=== PATIENT | male | born 1975 | race African-American/Black ===

== ENCOUNTER 2017-09-15 10:24 | Emergency (ER) | payer OTHER, SELFPAY | END 2017-09-15 11:13 | disposition left against medical advice (07) | LOC: ER 11:02 | PROVIDERS: Emergency Provider Emergency Medicine; Family Provider Physician Assistant | DX: Z53.29 Procedure and treatment not carried out because of patient's decision for other reasons (principal) | CPT/HCPCS: 99211 ==

== ENCOUNTER → 2019-09-11 17:11 | Outpatient (CLI) | payer OTHER, SELFPAY ==
[2019-09-11 17:13] LABS: Adenovirus F 40/41, stool Not Detected (NotDetected); Astrovirus Not Detected (NotDetected); Campylobacter Not Detected (NotDetected); Cryptosporidium Not Detected (NotDetected); Cyclospora Cayetanesis Not Detected (NotDetected); Entamoeba histolytica Not Detected (NotDetected); Enteroaggregative E coli Not Detected (NotDetected); Enteropathogenic E coli Not Detected (NotDetected); Enterotoxigenic E coli Not Detected (NotDetected); Giardia lamblia Not Detected (NotDetected); Norovirus Not Detected (NotDetected); Plesimonas Shigalloides, PCR Not Detected (NotDetected); Rotavirus A Not Detected (NotDetected); Salmonella, PCR Not Detected (NotDetected); Sapovirus Not Detected (NotDetected); Shiga-like toxin E coli Not Detected (NotDetected); Shigella Enterovasive E coli Not Detected (NotDetected); Vibrio Cholerae Not Detected (NotDetected); Vibrio, PCR Not Detected (NotDetected); Yersinia Entercolitica, PCR Not Detected (NotDetected)
[2019-09-11 20:20] LABS: Clostridium Difficile A/B, PCR Detected (NotDetected)
== END ==
PROVIDERS: Visit Provider Nurse Practitioner Family
DX: A04.72 Enterocolitis due to Clostridium difficile, not specified as recurrent (principal)
CPT/HCPCS: 87506

== ENCOUNTER 2020-08-07 15:43 | Emergency (ER) | payer OTHER, SELFPAY ==
[2020-08-07 16:10] VITALS: BP 190/125; PULSE 63; RESP 20; TEMP 37.2; O2SAT 98; BMI 27.1
[2020-08-07 16:16] VITALS: BMI 27.2
--- NOTE | 2020-08-07 16:17 | XR_ITS ---
PROCEDURE: XR CERVICAL SPINE 3V CLINICAL INDICATION: PAIN COMPARISON: No exams were available for comparison FINDINGS: Normal alignment. No fracture or dislocation. The disc spaces are well preserved. There is straightening of the cervical lordosis. This is nonspecific and may be due to patient positioning or muscle spasm. IMPRESSION: Straightening of cervical lordosis otherwise negative Dictated by: Mk Alvarado MD 08/07/2020 16:47 Mk Alvarado MD in [place] 08/07/2020 16:47
--- NOTE | 2020-08-07 16:17 | XR_ITS ---
PROCEDURE: XR SHOULDER RT MIN 2V CLINICAL INDICATION: PAIN COMPARISON: No exams were available for comparison FINDINGS: No fracture or dislocation. No lytic or blastic change. There is normal mineralization. The joint spaces are well-preserved. No significant degenerative/arthritic changes. No erosive changes evident. Other findings:None. IMPRESSION: Negative right shoulder Dictated by: Mk Alvarado MD 08/07/2020 16:47 Mk Alvarado MD in [place] 08/07/2020 16:47
--- NOTE | 2020-08-07 16:23 | HMH.EDUTC ---
[facility] [place] Impression: Neck pain, Muscle spasm Right shoulder pain Qualifiers: Chronicity: unspecified Qualified Code(s): M25.511 - Pain in right shoulder Disposition: Home, Self-Care Condition on Discharge: Good Instructions: Chronic Neck Pain, DI for Shoulder Pain Additional Instructions: Go home and rest. It would be best if you rested tomorrow too. No heavy lifting. No twisting. Take the oral medications as directed. The muscle relaxer (robaxin) will make you drowsy, so don't drive or operate heavy machinery after taking it. Follow up with your regular doctor. GO TO THE ER FOR ANY WORSENING SYMPTOMS OR CONCERN, ESPECIALLY BOWEL OR BLADDER ISSUES, SADDLE AREA NUMBNESS, FEVER, ETC Follow up with your primary care physician regarding your elevated blood pressure. Prescriptions: Losartan Potassium 50 mg PO DAILY 30 Days #30 tab Transmission Status: Received by [id number] predniSONE [Prednisone 20mg Tab] 20 mg PO BID 5 Days #10 tab Transmission Status: Received by [id number] Methocarbamol [Robaxin 500mg Tab] 500 mg PO BIDP PRN #30 tab PRN Reason: Muscle Spasm Transmission Status: Received by [id number] Referrals: Isamar Arguello PA [Primary Care Provider] - Time of Disposition: 16:48 Medical Decision Making - Medical Records Medical records reviewed: No: I reviewed the patient's medical records. - Ravinder Inquiry Pt receiving controlled substance: No Vital Signs: 08/07/20 16:10 08/07/20 16:58 Temperature 98.9 F 98.9 F Temperature Source Oral Pulse Rate 63 Pulse Rate [Right Brachial] 63 Respiratory Rate 20 20 Blood Pressure 190/125 H Blood Pressure [Right Arm] 190/125 H Blood Pressure Mean [Right Arm] 146 Blood Pressure Source [Right Arm] Automatic Cuff Blood Pressure Position [Right Arm] Sitting 02 Sat by Pulse Oximetry 98 Oxygen Delivery Method Room Air [facility] [place] - General Stated complaint: L shoulder,neck pain Time Seen by Provider: 08/07/20 16:23 - History of Present Illness Provider Complaint: He complains of right shoulder and right sided neck pain. This has been ongoing for the past several months. It occurs intermitently. He states that today it is hurting worse than it has before. He denies any known injury. - Related Data Previous Rx's Medication Instructions Recorded Azithromycin [Z-Jhonatan 250mg Tab*] 250 mg PO UD DOSE PK #6 tab 11/13/19 escitalopram oxalate 10 mg tablet 10 mg PO DAILY #90 tab 11/13/19 losartan 25 mg tablet 25 mg PO DAILY #30 tab 02/25/20 Losartan Potassium 50 mg PO DAILY 30 Days #30 tab 08/07/20 Methocarbamol [Robaxin 500mg Tab] 500 mg PO BIDP PRN #30 tab 08/07/20 predniSONE [Prednisone 20mg 20 mg PO BID 5 Days #10 tab 08/07/20 Tab] Allergies Allergy/AdvReac Type Severity Reaction Status Date / Time lisinopril AdvReac Intermediate cough Verified 02/25/20 14:21 [facility] History - Hepatitis A Screen Attestation statement:: This patient has been screened for Hepatitis A risk factors. I have reviewed the patient's past medical history: Yes Medical History: Denies:: Cancer, Diabetes Mellitus Type 1, Diabetes Mellitus Type 2, Hypertension, Internal Pacemaker, MRSA Laterality Cases: Left: Arthroscopy Knee Other Surgeries: Yes: Other. No: Pacemaker Amputation: No Fractures: No - Social History Smoking Status: Current every day smoker Tobacco Type: smokeless tobacco # Packs/Day (cigarettes): 1 Alcohol Intake: never Alcohol Intake Frequency:: holidays/special occasions only Substance Use Type: denies use Occupational Status: employed Housing: house Household Members: spouse Family Hx:: Hypertension, Diabetes Comment: Gout,Arthritis ROS Obtained: Yes All systems reviewed & no additional complaints - Constitutional Constitutional: Denies chills, Denies fever(s) - Eyes Eyes: Denies eye discharge - ENT Ears, Nose, Mouth, and Throat: Denies dizzine
[2020-08-07 16:58] VITALS: BP 190/125; PULSE 63; RESP 20; TEMP 37.2; O2SAT 98
== END 2020-08-07 17:00 | disposition home or self-care (01) ==
PROVIDERS: Emergency Provider Nurse Practitioner Family; PCP Physician Assistant
DX: M54.2 Cervicalgia (principal); M62.838 Other muscle spasm; Z88.8 Allergy status to other drugs, medicaments and biological substances; F17.290 Nicotine dependence, other tobacco product, uncomplicated
CPT/HCPCS: 72040; 73030; 99201

== ENCOUNTER 2020-09-15 20:34 | Emergency (ER) | payer OTHER, SELFPAY ==
[2020-09-15 20:35] VITALS: BP 185/129; PULSE 85; RESP 21; O2SAT 99; BMI 27.9
--- NOTE | 2020-09-15 20:49 | HMH.EDUTC ---
[facility] [place] Impression: Muscle spasm Migraine Qualifiers: Migraine type: unspecified Status migrainosus presence: without status migrainosus Intractability: not intractable Qualified Code(s): G43.909 - Migraine, unspecified, not intractable, without status migrainosus Disposition: Home, Self-Care Condition on Discharge: Good Instructions: Migraine -- Adult, DI for Muscle Spasm Additional Instructions: *Etodolac every 8 hours with meal as needed for pain/inflammation Not additional anti-inflammatory like motrin, aleve, advil or Ibuprofen with the above amount of Etodolac You can still take Tylenol every 4 hours as needed if you need something else for pain *Ice 20 minutes every 2 hours for the first 48 hours after the initial injury followed by moist heat every 20 minutes 3-4 times a day to affected area *Muscle relaxer every 8 hours as needed for muscle spasms but remember, it WILL cause drowsiness You cannot take it and drive, operate machinery or care for small children. *Keep this area active, no movement leads to more stiffness, However take it easy and avoid heavy lifting pushing or pulling *Follow up with you family doctor if no improvement for further treatment Straight to the ER if any worsening of symptoms or any life threatening symptoms Prescriptions: Etodolac [Etodolac 200mg Cap*] 200 mg PO Q8HP PRN #20 cap PRN Reason: Moderate Pain Transmission Status: Received by [id number] Cyclobenzaprine HCl [Flexeril 10mg tablet] 10 mg PO TID PRN #30 tab PRN Reason: Muscle Spasm Transmission Status: Received by [id number] Referrals: Isamar Arguello PA [Primary Care Provider] - As needed Forms: Work/School Release Time of Disposition: 21:38 Medical Decision Making - Ravinder Inquiry Pt receiving controlled substance: No Ravinder was queried for this patient: No Vital Signs: 09/15/20 20:35 09/15/20 21:34 Pulse Rate [Left Brachial] 85 Respiratory Rate 21 Blood Pressure [Left Arm] 185/129 H 167/98 H Blood Pressure Mean [Left Arm] 147 121 Blood Pressure Source [Left Arm] Automatic Cuff 02 Sat by Pulse Oximetry 99 Oxygen Delivery Method Room Air Orders (Tests/Meds): ED MEDICATIONS Discontinued Medications Generic Name Dose Route Start Last Admin Trade Name Freq PRN Reason Stop Dose Admin Acetaminophen 1,000 mg 09/15/20 21:07 09/15/20 21:14 Acetaminophen 500mg Tab PO 09/15/20 21:08 1,000 mg ONCE ONE Administration Cyclobenzaprine HCl 10 mg 09/15/20 21:07 09/15/20 21:15 Cyclobenzaprine 10mg Tablet PO 09/15/20 21:08 10 mg ONCE ONE Administration Medical Decision Narrative: Discussed with patient and recommended transfer to the ED and patient refused States that he took blood pressure medication prior to arrival and just wanted to get something for his headache and neck pain Patient educated on risk with BP this high and verbalized understanding even and still refused transfer to the Ed discussed xray and patient advised he had one when he was here in Dec and declined xray Medication discussed with pharmacy Discussed again with patient and recommended transfer to the ED and patient refused State that after medication his headache is improved and light is no longer making his headache worse States that he feels much better Patient agreed if any worsening of symptoms to go straight the ED and follow up with his PCP tomorrow [facility] [place] - General Stated complaint: Headache;Sweating;Dizziness Time Seen by Provider: 09/15/20 20:49 Mode of Arrival: Ambulatory Source of Information: Patient Limitations: No Limitations Description of Symptoms (Recalled from Triage Doc. by RN): PATIENT C/O HEAD AND NECK PAIN, FATIGUE, AND SAYS HE IS HAVING DIFFICULTY KEEPING HIS EYES OPEN ALL DAY. S/O STATES PATIENT BLOOD PRESSURE HAS BEEN ELEVATED, TOOK LOSARTAN MITTEN STITCHER HEENT Symptoms (Recalled from RN notes): No Resp Symptoms (Recalled from RN notes): No Skin S
[2020-09-15 21:34] VITALS: BP 167/98
[2020-09-15 21:42] VITALS: BP 167/98; PULSE 85; RESP 21; TEMP 36.7; O2SAT 99
== END 2020-09-15 21:45 | disposition home or self-care (01) ==
PROVIDERS: Emergency Provider Nurse Practitioner; PCP Physician Assistant
DX: M62.838 Other muscle spasm (principal); G43.909 Migraine, unspecified, not intractable, without status migrainosus; I10 Essential (primary) hypertension; F17.290 Nicotine dependence, other tobacco product, uncomplicated; Z79.899 Other long term (current) drug therapy
CPT/HCPCS: 99202; G0463

== ENCOUNTER 2020-10-27 02:14 | Emergency (ER) | payer OTHER, SELFPAY ==
--- NOTE | 2020-10-27 02:15 | HMH.EDGENADL ---
ED Disposition Clinical Impression: Atypical chest pain Disposition: Left Against Medical Advice Condition on Discharge: Fair Instructions: DI for Atypical Chest Pain Referrals: PCP,No [Primary Care Provider] - Time of Disposition: 02:41 - Critical Care Critical Care Time: No Attestation: On , the high probability of a clinically significant, sudden or life threatening deterioration of the following system(s) required my full and direct attention, intervention and personal management. The time I documented below is in addition to time spent performing reported procedures but includes the following listed in this critical care notation. Medical Decision Making - Medical Records Medical records reviewed: Yes: I reviewed the patient's medical records. - Ravinder Inquiry Pt receiving controlled substance: No Vital Signs: 10/27/20 02:16 10/27/20 02:44 Temperature 98.3 F 98.2 F Temperature Source Oral Oral Pulse Rate 85 Pulse Rate [Right Brachial] 94 H Respiratory Rate 16 15 Blood Pressure 155/112 H Blood Pressure [Right Arm] 171/121 H Blood Pressure Mean [Right Arm] 137 Blood Pressure Source Automatic Cuff Blood Pressure Source [Right Arm] Automatic Cuff Blood Pressure Position Sitting Blood Pressure Position [Right Arm] Sitting 02 Sat by Pulse Oximetry 97 Oxygen Delivery Method Room Air Room Air Orders (Tests/Meds): ED MEDICATIONS Discontinued Medications Generic Name Dose Route Start Last Admin Trade Name Freq PRN Reason Stop Dose Admin Aspirin 325 mg 10/27/20 02:21 10/27/20 02:35 Aspirin 325mg Tablet PO 10/27/20 02:22 325 mg ONCE ONE Administration ORDERS Category Date Time Status Chest XR 2 view (NOT portable) [XR chest 2V] Stat Exams 10/27/20 02:20 Taken - ECG Data Tracing #1 Sinus rhythm with ventricular rate of 97 bpm. QRS 74, QTc 452. No ST segment changes. No arrhythmia. Medical Decision Narrative: In summary this is a 45-year-old male with history of hypertension presenting to the emergency department with chest pain. Patient clinically stable on arrival. Vital signs within normal limits. Differential diagnoses include acute coronary syndrome, vasospasm, chest wall pain. Story is not strongly concerning for pulmonary embolus or thoracic aortic dissection. Will obtain EKG. I highly recommended CBC, BMP, troponin. Possible CT angiography of the chest. Patient says that he absolutely cannot have laboratory work obtained. Has a phobia of needles. I explained that a heart attack or other serious problem could not be diagnosed on EKG or chest xray alone. He seems to understand this, the risks of missing acute coronary syndrome or thoracic dissection. We will obtain EKG and chest x-ray for now. Given 325 chewable aspirin. EKG shows sinus rhythm without evidence of ischemia. Chest x-ray unremarkable. Again I recommended blood work, patient deferred. Offered admission for observation until his cardiac stress test in the morning. He states he would rather go home tonight. Understands the risks. Will sign out AGAINST MEDICAL ADVICE. 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 General Adult HPI - General Chief complaint: Chest Pain Stated complaint: Chest Pain Time Seen by Provider: 10/27/20 02:15 Mode of Arrival: Ambulatory Source of Information: Patient Limitations: No Limitations - History of Present Illness HPI narrative: 45-year-old male presenting to the emergency department with chest pain. Pain is left-sided. Started around 1 hour prior to arrival. He was sitting on the edge of his bed when he had sharp pain that was located on his left anterior chest. Slight radiation to the left shoulder and neck. No numbness, weakness, tingling in his arms or legs. Pain lasted for a few minutes and then resolved. He has had pain like this before, but never of this duration or severity. He is scheduled for a
[2020-10-27 02:16] VITALS: BP 171/121; PULSE 94; RESP 16; TEMP 36.8; O2SAT 97; BMI 27.6
--- NOTE | 2020-10-27 02:16 | PC.NURSE ---
Pt refusing blood draw. He states I can't do needles. Pt explained importance of blood work and still refusing blood draw. aware.
--- NOTE | 2020-10-27 02:20 | XR_ITS ---
PROCEDURE: XR CHEST 2V CLINICAL HISTORY: chest pain Left-sided chest pain COMPARISON: No exams were available for comparison FINDINGS: The cardiomediastinal silhouette and pulmonary vascularity are within normal limits. The lungs are clear without infiltrates, suspicious nodules, or pleural effusions. No acute bony abnormalities. IMPRESSION: No acute findings. Dictated by: Mk Alvarado MD 10/27/2020 05:40 Mk Alvarado MD in [place] 10/27/2020 05:40
--- NOTE | 2020-10-27 02:21 | PC.NURSE ---
pt declares needle phobia and refuses to allow any venipuncture form for obtainment of laboratory work to rule out cardiac event. patient has been counseled per md and staff re: the fact that the blood work is necessary and he continues to refuse. notably hypertensive, but continues refusing any additional work up beyond ekg and chest xray.
--- NOTE | 2020-10-27 02:30 | ECG_ITS ---
APPROVED REPORT Exam: Resting ECG HR:97 bpm ECG Measurements Heart Rate 97 AXES RI 156 P 41 QRSd 74 QRS -14 QT 356 T 45 QTc 452 Conclusion Normal sinus rhythm Normal ECG Electronically signed by : Shaheed Ochoa, 10/28/2020 17:22:04
[2020-10-27 02:44] VITALS: BP 155/112; PULSE 85; RESP 15; TEMP 36.8; O2SAT 97
== END 2020-10-27 02:49 | disposition left against medical advice (07) ==
PROVIDERS: Emergency Provider Emergency Medicine; PCP Nurse Practitioner Family
DX: R07.89 Other chest pain (principal); I10 Essential (primary) hypertension; F41.9 Anxiety disorder, unspecified; F17.290 Nicotine dependence, other tobacco product, uncomplicated; Z79.899 Other long term (current) drug therapy
CPT/HCPCS: 71046; 93005; 99282

== ENCOUNTER 2020-11-25 16:53 | Emergency (ER) | payer OTHER, SELFPAY ==
[2020-11-25 17:05] VITALS: BP 160/113; PULSE 99; RESP 18; TEMP 37.2; O2SAT 100; BMI 28.3
--- NOTE | 2020-11-25 17:18 | HMH.EDUTC ---
[facility] Disposition Clinical Impression: Exposure to STD Disposition: Home, Self-Care Condition on Discharge: Good Instructions: Chlamydia: The Silent STD, DI for Chlamydia Additional Instructions: No sex for the next seven days, you must give the medication time to clear the infection Make sure to follow up in the next 5-7 days to get your test results Return if needed Straight to ER if any life threatening symptoms Referrals: Alexia King APRN [Primary Care Provider] - Time of Disposition: 17:26 Medical Decision Making - Ravinder Inquiry Pt receiving controlled substance: No Ravinder was queried for this patient: No Vital Signs: 11/25/20 17:05 11/25/20 17:36 Temperature 98.9 F 98.9 F Temperature Source Oral Pulse Rate 99 H Pulse Rate [Right Radial] 99 H Respiratory Rate 18 18 Blood Pressure 160/113 H Blood Pressure [Right Arm] 160/113 H Blood Pressure Mean [Right Arm] 128 Blood Pressure Source [Right Arm] Automatic Cuff Blood Pressure Position [Right Arm] Sitting 02 Sat by Pulse Oximetry 100 Oxygen Delivery Method Room Air Room Air Orders (Tests/Meds): ED MEDICATIONS Discontinued Medications Generic Name Dose Route Start Last Admin Trade Name Freq PRN Reason Stop Dose Admin Azithromycin 1,000 mg 11/25/20 17:22 11/25/20 17:33 Azithromycin 250mg Tablet PO 11/25/20 17:23 1,000 mg ONCE ONE Administration Protocol Medical Decision Narrative: Discussed with patient and recommended transfer to the ED due to blood pressure and patient declined states that his blood pressure goes up when he comes to the doctor and he is nervous and anxious about being exposed to an STD patient verbalized understanding of risks associated with elevated blood pressure [facility] HPI - General Stated complaint: Possible UTI Time Seen by Provider: 11/25/20 17:19 Mode of Arrival: Ambulatory Source of Information: Patient Limitations: No Limitations Description of Symptoms (Recalled from Triage Doc. by RN): Pt requesting to be checked for STD r/t exposure. HEENT Symptoms (Recalled from RN notes): No Resp Symptoms (Recalled from RN notes): No Skin Symptoms (Recalled from RN notes): No MS Symptoms (Recalled from RN notes): No Functional Status (Recalled from RN notes): n/a - History of Present Illness Provider Complaint: Patient states that he recently had unprotected sex with someone and they called him and told him that they just tested postive for Chlamydia State that he wanted to get tested and go ahead and get treated due to exposure States that he has HTN and finding this out has him very anxious Denies symptoms but wants treatment - Related Data Home Medications Medication Instructions Recorded Confirmed carvediloL [Carvedilol 12.5mg Tab] 12.5 mg PO BID 10/27/20 11/25/20 buPROPion HCL [Wellbutrin Sr] 100 mg PO BID 11/25/20 11/25/20 Previous Rx's Medication Instructions Recorded losartan 25 mg tablet 25 mg PO DAILY #60 tab 09/30/20 Allergies Allergy/AdvReac Type Severity Reaction Status Date / Time lisinopril AdvReac Intermediate cough Verified 11/05/20 13:18 - Worker's Comp Is this a Worker's Comp case?: No [facility] History - Hepatitis A Screen Drug use history?: No High risk sexual behaviors?: No History of sexually transmitted infection?: No Currently employed?: No Childcare worker?: No Do you have indoor plumbing?: Yes Do you have electricity?: Yes Attestation statement:: This patient has been screened for Hepatitis A risk factors. I have reviewed the patient's past medical history: Yes Medical History: Reports:: Anxiety, Hypertension Denies:: Cancer, Diabetes Mellitus Type 1, Diabetes Mellitus Type 2, Internal Pacemaker, MRSA Laterality Cases: Left: Arthroscopy Knee Other Surgeries: Yes: Other. No: Pacemaker Amputation: No Fractures: No - Social History Smoking Status: Current every day smoker Tobacco Type: smokeless tobacco # Packs/Day (cigarettes
[2020-11-25 17:36] VITALS: BP 160/113; PULSE 99; RESP 18; TEMP 37.2; O2SAT 100
[2020-11-29 14:50] LABS: Neisseria gonorrhoeae, NAA Negative (Negative)
== END 2020-11-25 17:36 | disposition home or self-care (01) ==
PROVIDERS: Emergency Provider Nurse Practitioner; PCP Nurse Practitioner Family
DX: Z20.2 Contact with and (suspected) exposure to infections with a predominantly sexual mode of transmission (principal); I10 Essential (primary) hypertension; F17.210 Nicotine dependence, cigarettes, uncomplicated
CPT/HCPCS: 87491; 87591; 99202; G0463

== ENCOUNTER 2020-12-02 09:21 | Emergency (ER) | payer OTHER, SELFPAY ==
[2020-12-02 09:24] VITALS: BP 142/82; PULSE 74; RESP 16; TEMP 36.6; O2SAT 100; BMI 27.1
[2020-12-02 09:31] VITALS: BP 138/85; PULSE 79; RESP 19; TEMP 36.6
--- NOTE | 2020-12-02 10:00 | HMH.EDUTC ---
[facility] [place] Disposition Clinical Impression: Exposure to COVID-19 virus Disposition: Home, Self-Care Condition on Discharge: Good Instructions: Preventing the Spread of Coronavirus Discharge Instructions Additional Instructions: Drink plenty of fluids. Take tylenol for pain or fever. Return if you begin to have difficulty breathing. Follow up with your regular doctor. GO TO THE ER FOR ANY WORSENING SYMPTOMS Referrals: Alexia King APRN [Primary Care Provider] - Forms: Work/School Release Time of Disposition: 10:01 Medical Decision Making - Medical Records Medical records reviewed: No: I reviewed the patient's medical records. - Ravinder Inquiry Pt receiving controlled substance: No Vital Signs: 12/02/20 09:24 12/02/20 09:31 Temperature 97.8 F 98 F Temperature Source Oral Pulse Rate 79 Pulse Rate [Right] 74 Respiratory Rate 16 19 Blood Pressure 138/85 Blood Pressure [Right Arm] 142/82 H Blood Pressure Mean [Right Arm] 102 Blood Pressure Source [Right Arm] Automatic Cuff Blood Pressure Position [Right Arm] Sitting 02 Sat by Pulse Oximetry 100 Oxygen Delivery Method Room Air Orders (Tests/Meds): ORDERS Category Date Time Status Covid-19 Nasal PCR ([facility]) Routine Lab 12/02/20 09:25 Received [facility] [place] HPI - General Stated complaint: covid test Time Seen by Provider: 12/02/20 10:00 Mode of Arrival: Ambulatory Source of Information: Patient Limitations: No Limitations Description of Symptoms (Recalled from Triage Doc. by RN): pt was directly exposed to covid positive coworker. pt is aymptomatic. HEENT Symptoms (Recalled from RN notes): No Resp Symptoms (Recalled from RN notes): No Skin Symptoms (Recalled from RN notes): No MS Symptoms (Recalled from RN notes): No Functional Status (Recalled from RN notes): na - History of Present Illness Provider Complaint: He is here for a covid test. He denies any symptoms. - Related Data Home Medications Medication Instructions Recorded Confirmed buPROPion HCL [Wellbutrin Sr] 100 mg PO BID 11/25/20 11/28/20 hydrochlorothiazide 25 mg tablet 25 mg PO DAILY 11/28/20 11/28/20 losartan 25 mg tablet 50 mg PO DAILY tab 11/28/20 11/28/20 Previous Rx's Medication Instructions Recorded amlodipine 5 mg tablet 5 mg PO QHS #90 tab 11/28/20 Allergies Allergy/AdvReac Type Severity Reaction Status Date / Time lisinopril AdvReac Intermediate cough Verified 12/02/20 09:23 - Worker's Comp Is this a Worker's Comp case?: No [facility] History - Hepatitis A Screen Drug use history?: No High risk sexual behaviors?: No History of sexually transmitted infection?: No Currently employed?: No Childcare worker?: No Do you have indoor plumbing?: Yes Do you have electricity?: Yes Attestation statement:: This patient has been screened for Hepatitis A risk factors. I have reviewed the patient's past medical history: Yes Medical History: Reports:: Anxiety, Hypertension Denies:: Cancer, Diabetes Mellitus Type 1, Diabetes Mellitus Type 2, Internal Pacemaker, MRSA Laterality Cases: Left: Arthroscopy Knee Other Surgeries: Yes: Other. No: Pacemaker Amputation: No Fractures: No - Social History Smoking Status: Current every day smoker Tobacco Type: smokeless tobacco # Packs/Day (cigarettes): 1 Alcohol Intake: never Alcohol Intake Frequency:: holidays/special occasions only Substance Use Type: denies use Occupational Status: other Housing: house Household Members: spouse - Psychiatric History Pschychiatric History:: Reports:: Anxiety Family Hx:: Hypertension, Diabetes, Coronary Artery Disease Comment: Gout,Arthritis ROS Obtained: Yes All systems reviewed & no additional complaints - Constitutional Constitutional: Reports system reviewed and no additional complaints, except as docu - Eyes Eyes: Reports system reviewed and no additional complaints, except as docu - ENT Ears, Nose, Mouth, and Throat: Reports system reviewed a
== END 2020-12-02 10:01 | disposition home or self-care (01) ==
PROVIDERS: Emergency Provider Nurse Practitioner Family; PCP Nurse Practitioner Family
DX: Z20.822 Contact with and (suspected) exposure to COVID-19 (principal); I10 Essential (primary) hypertension; F41.9 Anxiety disorder, unspecified; F17.290 Nicotine dependence, other tobacco product, uncomplicated
CPT/HCPCS: 99202; G0463; U0003

== ENCOUNTER 2020-12-13 15:16 | Emergency (ER) | payer OTHER, SELFPAY ==
[2020-12-13 15:19] VITALS: BP 161/112; PULSE 101; RESP 16; TEMP 36.6; O2SAT 98; BMI 26.9
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
[2020-12-13 16:46] VITALS: BP 161/100; PULSE 78; RESP 18; TEMP 36.6; O2SAT 98
== END 2020-12-13 16:47 | disposition home or self-care (01) ==
PROVIDERS: Emergency Provider Emergency Medicine; PCP Nurse Practitioner Family
DX: S13.4XXA Sprain of ligaments of cervical spine, initial encounter (principal); V43.52XA Car driver injured in collision with other type car in traffic accident, initial encounter; Y92.414 Local residential or business street as the place of occurrence of the external cause
CPT/HCPCS: 71046; 72040; 99282

== ENCOUNTER 2020-12-16 14:52 | Emergency (ER) | payer OTHER, SELFPAY ==
[2020-12-16 15:02] VITALS: BP 137/101; PULSE 82; RESP 14; TEMP 36.3; O2SAT 99; BMI 27.8
--- NOTE | 2020-12-16 15:13 | HMH.EDUTC ---
[facility] [place] Disposition Clinical Impression: Epigastric abdominal pain Acid reflux Qualifiers: Esophagitis presence: without esophagitis Qualified Code(s): K21.9 - Gastro-esophageal reflux disease without esophagitis Disposition: Home, Self-Care Condition on Discharge: Good Instructions: Gastroesophageal Reflux Disease -- Adolescent Additional Instructions: Avoid any foods that seem to make your symptoms worse. Follow up with your primary care physician as scheduled. GO TO THE ER FOR ANY WORSENING SYMPTOMS OR CONCERNS. Prescriptions: Famotidine [Pepcid 20mg Tablet] 20 mg PO BID 30 Days #60 tab Transmission Status: Received by [facility] Referrals: Alexia King APRN [Primary Care Provider] - Forms: Work/School Release Time of Disposition: 15:39 Medical Decision Making - Medical Records Medical records reviewed: No: I reviewed the patient's medical records. - Ravinder Inquiry Pt receiving controlled substance: No Vital Signs: 12/16/20 15:02 12/16/20 15:54 Temperature 97.3 F L 97.3 F L Temperature Source Oral Tympanic Pulse Rate 82 Pulse Rate [Right Brachial] 82 Respiratory Rate 14 14 Blood Pressure 137/100 H Blood Pressure [Right Arm] 137/101 H Blood Pressure Mean [Right Arm] 113 Blood Pressure Source Automatic Cuff Blood Pressure Source [Right Arm] Automatic Cuff Blood Pressure Position Sitting Blood Pressure Position [Right Arm] Sitting 02 Sat by Pulse Oximetry 99 Oxygen Delivery Method Room Air Room Air Orders (Tests/Meds): ED MEDICATIONS Discontinued Medications Generic Name Dose Route Start Last Admin Trade Name Freq PRN Reason Stop Dose Admin Belladonna Alkaloids 60 ml 12/16/20 15:20 12/16/20 15:28 Gi Cocktail 60ml Udc PO 12/16/20 15:21 60 ml ONCE ONE Administration Medical Decision Narrative: He felt better after the GI cocktail. He has f/u appt tomorrow at his pcp. [facility] [place] HPI - General Stated complaint: burning in stomach Time Seen by Provider: 12/16/20 15:21 Mode of Arrival: Ambulatory Source of Information: Patient Limitations: No Limitations Description of Symptoms (Recalled from Triage Doc. by RN): GERD x1 week. HEENT Symptoms (Recalled from RN notes): Yes Resp Symptoms (Recalled from RN notes): No Skin Symptoms (Recalled from RN notes): No MS Symptoms (Recalled from RN notes): No Functional Status (Recalled from RN notes): wnl - History of Present Illness Provider Complaint: He states that for the past 1 week he has had worsening problems with acid reflux and heart burn. He denies any previous history of these symptoms. - Related Data Home Medications Medication Instructions Recorded Confirmed buPROPion HCL [Wellbutrin Sr] 100 mg PO BID 11/25/20 11/28/20 hydrochlorothiazide 25 mg tablet 25 mg PO DAILY 11/28/20 11/28/20 losartan 25 mg tablet 50 mg PO DAILY tab 11/28/20 11/28/20 Previous Rx's Medication Instructions Recorded amlodipine 5 mg tablet 5 mg PO QHS #90 tab 11/28/20 Ibuprofen [Ibuprofen 600mg 600 mg PO Q8 PRN #30 tab 12/13/20 Tablet] Ondansetron [Zofran 4mg ODT] 4 mg PO Q6 PRN #12 tab 12/13/20 Famotidine [Pepcid 20mg Tablet] 20 mg PO BID 30 Days #60 tab 12/16/20 Allergies Allergy/AdvReac Type Severity Reaction Status Date / Time lisinopril AdvReac Intermediate cough Verified 12/02/20 09:23 - Worker's Comp Is this a Worker's Comp case?: No [facility] History - Hepatitis A Screen Drug use history?: No High risk sexual behaviors?: No History of sexually transmitted infection?: No Currently employed?: No Childcare worker?: No Do you have indoor plumbing?: Yes Do you have electricity?: Yes Attestation statement:: This patient has been screened for Hepatitis A risk factors. I have reviewed the patient's past medical history: Yes Medical History: Reports:: Anxiety, Hypertension Denies:: Cancer, Diabetes Mellitus Type 1, Diabetes Mellitus Type 2, Internal Pacemaker, MRSA Lat
[2020-12-16 15:54] VITALS: BP 137/100; PULSE 82; RESP 14; TEMP 36.3; O2SAT 99
== END 2020-12-16 15:55 | disposition home or self-care (01) ==
PROVIDERS: Emergency Provider Nurse Practitioner Family; PCP Nurse Practitioner Family
DX: R10.13 Epigastric pain (principal); K21.9 Gastro-esophageal reflux disease without esophagitis; I10 Essential (primary) hypertension; F41.9 Anxiety disorder, unspecified; F17.210 Nicotine dependence, cigarettes, uncomplicated; Z79.899 Other long term (current) drug therapy
CPT/HCPCS: 99202; G0463

== ENCOUNTER 2020-12-23 19:31 | Emergency (ER) | payer OTHER, SELFPAY ==
[2020-12-23 20:04] VITALS: BP 141/81; PULSE 87; RESP 19; TEMP 36.6; O2SAT 99; BMI 27.1
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
[2020-12-23 20:11] VITALS: BP 141/81; PULSE 87; RESP 19; TEMP 36.6; O2SAT 99
== END 2020-12-23 20:18 | disposition home or self-care (01) ==
PROVIDERS: Emergency Provider Nurse Practitioner; PCP Physician Assistant
DX: M54.42 Lumbago with sciatica, left side (principal); I10 Essential (primary) hypertension; F41.9 Anxiety disorder, unspecified; F17.290 Nicotine dependence, other tobacco product, uncomplicated
CPT/HCPCS: 99202; G0463

== ENCOUNTER → 2021-01-08 15:23 | Outpatient (CLI) | payer BC, OTHER, SELFPAY ==
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
== END ==
PROVIDERS: PCP Physician Assistant; Visit Provider Physician Assistant
DX: M54.2 Cervicalgia (principal); S13.4XXA Sprain of ligaments of cervical spine, initial encounter; V89.2XXA Person injured in unspecified motor-vehicle accident, traffic, initial encounter
CPT/HCPCS: 72141; 76376

== ENCOUNTER 2021-02-18 13:44 | Outpatient (RCR) | payer BC, OTHER, SELFPAY | END 2021-02-18 13:50 | disposition home or self-care (01) | LOC: PT 13:44 | PROVIDERS: PCP Physician Assistant; Visit Provider Nurse Practitioner Family | DX: M54.2 Cervicalgia (principal) | CPT/HCPCS: 97163 ==

== ENCOUNTER 2021-04-16 16:42 | Outpatient (RCR) | payer BC, OTHER, SELFPAY ==
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
== END 2021-04-16 16:45 | disposition home or self-care (01) ==
LOC: PT 16:42
PROVIDERS: PCP Physician Assistant; Visit Provider Nurse Practitioner Family
DX: M54.2 Cervicalgia (principal); M25.511 Pain in right shoulder
CPT/HCPCS: 97163

== ENCOUNTER → 2021-09-18 16:10 | Outpatient (CLI) | payer OTHER, SELFPAY | PROVIDERS: Visit Provider Nurse Practitioner | DX: Z20.822 Contact with and (suspected) exposure to COVID-19 (principal) | CPT/HCPCS: C9803; U0003; U0005 ==

== ENCOUNTER 2021-09-18 16:19 | Emergency (ER) | payer OTHER, SELFPAY ==
[2021-09-18 16:25] VITALS: BP 150/103; PULSE 75; RESP 20; TEMP 36.8; O2SAT 100; BMI 27.1
--- NOTE | 2021-09-18 17:07 | HMH.EDUTC ---
[facility] [place] Clinical Impression: Muscle spasm Disposition: Home, Self-Care Condition on Discharge: Good Instructions: Prednisone, DI for Muscle Spasm Additional Instructions: *Ibuprofen jhonatan 6 hours with meal as needed for pain/inflammation *Not additional anti-inflammatory like motrin, aleve, advil with the above amount of ibuprofen. You can still take Tylenol every 4 hours as needed if you need something else for pain *Ice 20 minutes every 2 hours for the first 48 hours after the initial injury followed by moist heat every 20 minutes 3-4 times a day to affected area *Muscle relaxer as prescribed as needed for muscle spasms but remember, it WILL cause drowsiness You cannot take it and drive, operate machinery or care for small children. *Keep this area active, no movement leads to more stiffness, However take it easy and avoid heavy lifting pushing or pulling *Follow up with you family doctor if no improvement for further treatment Follow up Chiropractor for further evaluation may help with shoulder and back pain Straight to ER if any life threatening symptoms Prescriptions: predniSONE [Deltasone 10mg tablet] 10 mg PO BID 5 Days #10 tab Transmission Status: Pending to [facility] Referrals: Les Nova APRN [Primary Care Provider] - As needed Forms: Work/School Release Time of Disposition: 17:23 Medical Decision Making - Ravinder Inquiry Pt receiving controlled substance: No Ravinder was queried for this patient: No Vital Signs: 09/18/21 16:25 Temperature 98.2 F Temperature Source Oral Pulse Rate [Right Brachial] 75 Respiratory Rate 20 Blood Pressure [Right Arm] 150/103 H Blood Pressure Mean [Right Arm] 118 Blood Pressure Source [Right Arm] Automatic Cuff Blood Pressure Position [Right Arm] Sitting 02 Sat by Pulse Oximetry 100 Oxygen Delivery Method Room Air [facility] [place] HPI - General Stated complaint: neck pain Time Seen by Provider: 09/18/21 17:13 Mode of Arrival: Ambulatory Source of Information: Patient Limitations: No Limitations Description of Symptoms (Recalled from Triage Doc. by RN): PATIENT C/O PAIN TO RIGHT SIDE OF NECK THAT RADIATES INTO JAW AND BEHIND RIGHT EAR WITH HEADACHE HEENT Symptoms (Recalled from RN notes): Yes Resp Symptoms (Recalled from RN notes): No Skin Symptoms (Recalled from RN notes): No MS Symptoms (Recalled from RN notes): No Functional Status (Recalled from RN notes): WNL - History of Present Illness Provider Complaint: Patient states that he thinks he slept wrong States that he has been having muscle spasms in the right side of his neck that goes from his neck behind his right ear to his shoulder and feels tight and causes him to have a tension headache States that he has completed physicial therapy for it but it hasnt helped much and is currently prescribed muscle relaxers - Related Data Previous Rx's Medication Instructions Recorded Famotidine [Pepcid 20mg Tablet] 20 mg PO BID 30 Days #60 tab 12/16/20 cetirizine 10 mg tablet 10 mg PO DAILY #30 tab 05/15/21 fluticasone propionate 50 1 spray INTRANASAL DAILY #16 g 05/15/21 mcg/actuation nasal spray,suspension trazodone 50 mg tablet 50 mg PO QHS #90 tab 05/15/21 omeprazole 40 mg capsule,delayed See Rx Instructions .ROUTE 06/16/21 release .COMPLEX #90 cap carvedilol 12.5 mg tablet 12.5 mg PO BID #60 tab 08/10/21 ibuprofen 600 mg tablet See Rx Instructions .ROUTE 08/31/21 .COMPLEX #60 tab tizanidine 4 mg tablet See Rx Instructions .ROUTE 08/31/21 .COMPLEX #90 tab hydrochlorothiazide 25 mg tablet 25 mg PO DAILY #30 tab 09/02/21 predniSONE [Deltasone 10mg tablet] 10 mg PO BID 5 Days #10 tab 09/18/21 Allergies Allergy/AdvReac Type Severity Reaction Status Date / Time lisinopril AdvReac Intermediate cough Verified 09/01/21 11:38 - Worker's Comp Is this a Worker's Comp case?: No [place] History - Hepatitis A Screen Drug use history?: No High risk sexual behaviors?: No History of sexually transmi
[2021-09-18 17:27] VITALS: BP 134/99; PULSE 75; RESP 20; TEMP 36.8; O2SAT 100
== END 2021-09-18 17:45 | disposition home or self-care (01) ==
PROVIDERS: Emergency Provider Nurse Practitioner; PCP Nurse Practitioner Family
DX: M54.2 Cervicalgia (principal); M62.838 Other muscle spasm; I10 Essential (primary) hypertension; F41.9 Anxiety disorder, unspecified
CPT/HCPCS: 99202; G0463

== ENCOUNTER → 2021-10-06 08:13 | Outpatient (CLI) | payer OTHER, SELFPAY ==
[2021-10-07 08:26] LABS: Covid-19 Nasal PCR Sendout Lex NOT DETECTED
== END ==
PROVIDERS: Visit Provider Nurse Practitioner
DX: Z20.822 Contact with and (suspected) exposure to COVID-19 (principal)
CPT/HCPCS: C9803; U0004; U0005

== ENCOUNTER → 2021-10-12 11:18 | Outpatient (CLI) | payer OTHER, SELFPAY ==
[2021-10-13 08:35] LABS: Covid-19 Nasal PCR Sendout Lex POSITIVE
== END ==
PROVIDERS: PCP Nurse Practitioner Family; Visit Provider Nurse Practitioner
DX: U07.1 COVID-19 (principal)
CPT/HCPCS: C9803; U0004; U0005

== ENCOUNTER 2021-11-02 13:01 | Emergency (ER) | payer OTHER, SELFPAY ==
[2021-11-02 14:18] VITALS: BP 155/118; PULSE 75; RESP 14; TEMP 36.9; O2SAT 100; BMI 26.4
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
[2021-11-02 15:59] VITALS: BP 155/118; PULSE 75; RESP 14; TEMP 36.9
== END 2021-11-02 16:00 | disposition home or self-care (01) ==
PROVIDERS: Emergency Provider Nurse Practitioner Family; PCP Nurse Practitioner Family
DX: M43.6 Torticollis (principal); M54.2 Cervicalgia; F41.9 Anxiety disorder, unspecified; I10 Essential (primary) hypertension; F17.290 Nicotine dependence, other tobacco product, uncomplicated; Z79.1 Long term (current) use of non-steroidal anti-inflammatories (NSAID); Z79.51 Long term (current) use of inhaled steroids; Z79.52 Long term (current) use of systemic steroids; Z79.899 Other long term (current) drug therapy; Z88.0 Allergy status to penicillin; Z82.49 Family history of ischemic heart disease and other diseases of the circulatory system; Z83.3 Family history of diabetes mellitus; Z82.61 Family history of arthritis; Z82.69 Family history of other diseases of the musculoskeletal system and connective tissue

== ENCOUNTER 2021-11-06 10:13 | Emergency (ER) | payer OTHER, SELFPAY ==
[2021-11-06 11:30] VITALS: BP 165/93; PULSE 77; RESP 18; TEMP 36.8; O2SAT 100; BMI 26.4
--- NOTE | 2021-11-06 11:59 | HMH.EDUTC ---
[facility] [place] Disposition Clinical Impression: Encounter to obtain excuse from work Disposition: Home, Self-Care Condition on Discharge: Good Instructions: DI for Headache, DI for Muscle Spasm Additional Instructions: Continue taking medication as you was prescribed Return if needed Straight to ER if any life threatening symptoms Referrals: Les Nova APRN [Primary Care Provider] - As needed Forms: Work/School Release Time of Disposition: 12:02 Medical Decision Making - Ravinder Inquiry Pt receiving controlled substance: No Ravinder was queried for this patient: No Vital Signs: 11/06/21 11:30 Temperature 98.3 F Temperature Source Oral Pulse Rate [Right Brachial] 77 Respiratory Rate 18 Blood Pressure [Right Arm] 165/93 H Blood Pressure Mean [Right Arm] 117 Blood Pressure Source [Right Arm] Automatic Cuff Blood Pressure Position [Right Arm] Sitting 02 Sat by Pulse Oximetry 100 Oxygen Delivery Method Room Air [facility] [place] HPI - General Stated complaint: migraine Time Seen by Provider: 11/06/21 11:59 Mode of Arrival: Ambulatory Source of Information: Patient Limitations: No Limitations Description of Symptoms (Recalled from Triage Doc. by RN): PATIENT C/O HEADACHE, NEEDS A WORK NOTE HEENT Symptoms (Recalled from RN notes): Yes Resp Symptoms (Recalled from RN notes): No Skin Symptoms (Recalled from RN notes): No MS Symptoms (Recalled from RN notes): No Functional Status (Recalled from RN notes): WNL - History of Present Illness Provider Complaint: Patient states that he has problems with muscle spasms in his neck that causes headaches States that he was seen a couple days ago and started on muscle relaxers States that they are working and he is feeling better but still having spasms and headaches at times so he came in to get his work not extended to give medicaiton longer to work - Related Data Previous Rx's Medication Instructions Recorded Famotidine [Pepcid 20mg Tablet] 20 mg PO BID 30 Days #60 tab 12/16/20 cetirizine 10 mg tablet 10 mg PO DAILY #30 tab 05/15/21 fluticasone propionate 50 1 spray INTRANASAL DAILY #16 g 05/15/21 mcg/actuation nasal spray,suspension omeprazole 40 mg capsule,delayed See Rx Instructions .ROUTE 06/16/21 release .COMPLEX #90 cap carvedilol 12.5 mg tablet 12.5 mg PO BID #60 tab 08/10/21 hydrochlorothiazide 25 mg tablet 25 mg PO DAILY #30 tab 09/02/21 predniSONE [Deltasone 10mg tablet] 10 mg PO BID 5 Days #10 tab 09/18/21 tizanidine 4 mg tablet See Rx Instructions .ROUTE 10/02/21 .COMPLEX #90 tab trazodone 50 mg tablet 50 mg PO QHS #90 tab 10/05/21 ibuprofen 600 mg tablet See Rx Instructions .ROUTE 10/07/21 .COMPLEX #60 tab Cyclobenzaprine HCl 10 mg PO BIDP PRN #20 tab 11/02/21 [Cyclobenzaprine 10mg Tab] methylPREDNISolone [Medrol] 4 mg PO DIRECTED 6 Days #21 11/02/21 packet Allergies Allergy/AdvReac Type Severity Reaction Status Date / Time lisinopril AdvReac Intermediate cough Verified 09/01/21 11:38 - Worker's Comp Is this a Worker's Comp case?: No [facility] History - Hepatitis A Screen Drug use history?: No High risk sexual behaviors?: No History of sexually transmitted infection?: No Currently employed?: No Childcare worker?: No Do you have indoor plumbing?: Yes Do you have electricity?: Yes Attestation statement:: This patient has been screened for Hepatitis A risk factors. I have reviewed the patient's past medical history: Yes Medical History: Reports:: Anxiety, Hypertension Denies:: Cancer, Diabetes Mellitus Type 1, Diabetes Mellitus Type 2, Internal Pacemaker, MRSA Laterality Cases: Left: Arthroscopy Knee Other Surgeries: Yes: Other. No: Pacemaker Amputation: No Fractures: No - Social History Smoking Status: Never smoker Tobacco Type: smokeless tobacco # Packs/Day (cigarettes): 0 Alcohol Intake: never Alcohol Intake Frequency:: holidays/special occasions only Substance Use Type: marijuana Occupational Status: other Housing: house
[2021-11-06 12:19] VITALS: BP 165/93; PULSE 77; RESP 18; TEMP 36.8; O2SAT 100
== END 2021-11-06 12:25 | disposition home or self-care (01) ==
PROVIDERS: Emergency Provider Nurse Practitioner; PCP Nurse Practitioner Family
DX: R51.9 Headache, unspecified (principal); M62.838 Other muscle spasm; Z02.89 Encounter for other administrative examinations
CPT/HCPCS: 99211; G0463

== ENCOUNTER → 2021-11-30 13:47 | Outpatient (CLI) | payer OTHER, SELFPAY | PROVIDERS: PCP Nurse Practitioner Family; Visit Provider Nurse Practitioner Family | DX: Z01.818 Encounter for other preprocedural examination (principal); Z11.52 Encounter for screening for COVID-19 | CPT/HCPCS: C9803; U0003; U0005 ==

== ENCOUNTER 2022-01-13 09:28 | Emergency (ER) | payer OTHER, SELFPAY ==
[2022-01-13 10:05] VITALS: BP 141/87; PULSE 71; RESP 18; TEMP 36.7; O2SAT 99; BMI 25.7
--- NOTE | 2022-01-13 10:36 | HMH.EDUTC ---
[facility] [place] Disposition Clinical Impression: Nausea vomiting and diarrhea Disposition: Home, Self-Care Condition on Discharge: Good Instructions: Diarrhea, Nausea and Vomiting-Adult Additional Instructions: Drink extra fluids with and between meals. If you have difficulty drinking, try very small amounts of water or suck on ice chips. ? Avoid fruit juices, as these do not replace minerals and can actually increase diarrhea. ? Children and adults can use sports drinks to replenish electrolytes. Younger children and infants should use products formulated for children, like oral rehydration solutions. ? Eat food in small amounts and let your stomach recover. ? Get lots of rest. You may feel tired or weak. ? No greasy or fried foods for the next 24-48 hours BRAT diet Bananas Rice Apples and [place]wood ? Make sure to drink plenty of liquids ? Return if needed ? Straight to ER if any life threatening symptoms ? Zofran as prescribed ? You was given an outpatient order for diarrhea panel, please collect specimen and bring back to outpatient lab then call back to the [facility] or follow up with family doctor for results ? Follow up with family doctor in the next 48-72 hours if no improvement or any worsening of symptoms Prescriptions: Ondansetron [Zofran 4mg ODT] 4 mg PO TIDP PRN #10 tab PRN Reason: Nausea Transmission Status: Pending to [facility] Referrals: Les Nova APRN [Primary Care Provider] - As needed Forms: Work/School Release Medical Decision Making - Ravinder Inquiry Pt receiving controlled substance: No Ravinder was queried for this patient: No Vital Signs: 01/13/22 10:05 Temperature 98.0 F Temperature Source Oral Pulse Rate [Right Brachial] 71 Respiratory Rate 18 Blood Pressure [Right Arm] 141/87 H Blood Pressure Mean [Right Arm] 105 Blood Pressure Source [Right Arm] Automatic Cuff Blood Pressure Position [Right Arm] Sitting 02 Sat by Pulse Oximetry 99 Oxygen Delivery Method Room Air [facility] [place] HPI - General Stated complaint: vomiting,diarrhea Time Seen by Provider: 01/13/22 10:36 Mode of Arrival: Ambulatory Source of Information: Patient Limitations: No Limitations Description of Symptoms (Recalled from Triage Doc. by RN): PATIENT C/O VOMITING AND DIARRHEA SINCE YESTERDAY HEENT Symptoms (Recalled from RN notes): No Resp Symptoms (Recalled from RN notes): No Skin Symptoms (Recalled from RN notes): No MS Symptoms (Recalled from RN notes): No Functional Status (Recalled from RN notes): WNL - History of Present Illness Provider Complaint: Patient states that several people in his family recently had the stomach bug States that now he has started having N/V/D and not able to keep much down so he came in to get something to help - Related Data Home Medications Medication Instructions Recorded Confirmed Ibuprofen [Ibuprofen 600mg See Rx Instructions .ROUTE .COMPLEX 01/13/22 01/13/22 Tablet] Tizanidine HCl See Rx Instructions .ROUTE .COMPLEX 01/13/22 01/13/22 Trazodone HCl 150 mg PO HS PRN 01/13/22 01/13/22 carvediloL [Carvedilol 12.5mg Tab] 12.5 mg PO BID 01/13/22 01/13/22 Previous Rx's Medication Instructions Recorded Ondansetron [Zofran 4mg ODT] 4 mg PO TIDP PRN #10 tab 01/13/22 Allergies Allergy/AdvReac Type Severity Reaction Status Date / Time lisinopril AdvReac Intermediate cough Verified 12/08/21 15:44 - Worker's Comp Is this a Worker's Comp case?: No [facility] History - Hepatitis A Screen Attestation statement:: This patient has been screened for Hepatitis A risk factors. I have reviewed the patient's past medical history: Yes Medical History: Reports:: Anxiety, Hypertension Denies:: Cancer, Diabetes Mellitus Type 1, Diabetes Mellitus Type 2, Internal Pacemaker, MRSA Laterality Cases: Left: Arthroscopy Knee Other Surgeries: Yes: Other. No: Pacemaker Amputation: No Fractures: No - Social History Smoking Status: Never smoker Tobacco Type: smokeless tobacco #
[2022-01-13 10:47] VITALS: BP 141/87; PULSE 71; RESP 18; TEMP 36.7; O2SAT 99
== END 2022-01-13 10:52 | disposition home or self-care (01) ==
PROVIDERS: Emergency Provider Nurse Practitioner; PCP Nurse Practitioner Family
DX: R11.2 Nausea with vomiting, unspecified (principal); R19.7 Diarrhea, unspecified; I10 Essential (primary) hypertension; F41.9 Anxiety disorder, unspecified
CPT/HCPCS: 99212; G0463

== ENCOUNTER → 2022-04-21 12:51 | Outpatient (CLI) | payer OTHER, SELFPAY | PROVIDERS: PCP Emergency Medicine; Visit Provider Emergency Medicine | DX: Z20.822 Contact with and (suspected) exposure to COVID-19 (principal) | CPT/HCPCS: C9803; U0003; U0005 ==

== ENCOUNTER 2022-04-23 12:52 | Emergency (ER) | payer OTHER, SELFPAY ==
[2022-04-23 14:26] VITALS: BP 145/99; PULSE 70; RESP 18; TEMP 36.2; O2SAT 99; BMI 26.4
--- NOTE | 2022-04-23 14:31 | EXP.UTC ---
Discharge Plan Disposition Patient Disposition: Home, Self-Care Condition: Good Prescriptions Prescriptions: New benzonatate [benzonatate] 100 mg capsule 100 mg PO TIDP PRN (Reason: Cough) Qty: 30 0RF ondansetron 4 mg Tablet,Disintegrating 4 mg PO Q8H PRN (Reason: Nausea) Qty: 20 0RF No Action ibuprofen 600 mg tablet See Rx Instructions .Route .COMPLEX Qty: 90 0RF Rx Instructions: TAKE 1 TABLET BY MOUTH EVERY 8 HOURS NEEDED FOR FEVER OR PAIN tizanidine 4 mg tablet See Rx Instructions .Route .COMPLEX Qty: 90 0RF Rx Instructions: TAKE ONE TABLET BY MOUTH EVERY 8 HOURS NEEDED FOR MUSCLE SPASTICITY *MAY CAUSE DROWSINESS* trazodone 150 mg tablet 150 mg PO HS PRN (Reason: Insomnia) Qty: 90 0RF carvedilol 12.5 MG tablet 12.5 mg PO BID Rx Instructions: must administer with a meal/food ondansetron 4 MG tablet,disintegrating 4 mg PO TIDP PRN (Reason: Nausea) Qty: 10 0RF Referrals Referrals: Les Nova APRN [Primary Care Provider] - Enter time for follow up Activity Restrictions/Add. Instructions Additional Instructions/Restrictions: Drink plenty of fluids. Take tylenol or ibuprofen for pain or fever. Take the medications as directed. Follow up with your regular doctor. GO TO THE ER FOR ANY WORSENING SYMPTOMS Quarantine until you know the results of your covid-19 test. Notify your school or workplace of your results and follow their instructions regarding return to work/school. Clinical Impressions Clinical Impression: Acute viral syndrome, Close exposure to COVID-19 virus Stand Alone Forms Stand Alone Forms: Work/School Release Instructions Patient Instructions: Coronavirus Disease 2019, Preventing the Spread of Coronavirus Discharge Instructions Discharge ED Provider: Elbert Cage [facility] General Stated complaint: covid test Mode of Arrival: Ambulatory Source of Information: Patient Limitations: No Limitations Time Seen by Provider: 04/23/22 14:30 Description of Symptoms (Recalled from Triage Doc. by RN): patient comes in for covid symptoms. headache, diarrhea, fatigue, womitting, bodyache, fatigue, chills. symptoms began this am. HEENT Symptoms (Recalled from RN notes): Yes Resp Symptoms (Recalled from RN notes): Yes Skin Symptoms (Recalled from RN notes): No MS Symptoms (Recalled from RN notes): No Functional Status (Recalled from RN notes): n/a History of Present Illness Provider Complaint: He states that for the past 2 days he has had sinus congestion, sore throat and body aches. Related Data Home Medications Medication Instructions Recorded Confirmed carvedilol 12.5 mg tablet 12.5 mg PO BID Hypertension 01/13/22 01/13/22 Previous Rx's Medication Instructions Recorded ondansetron 4 mg disintegrating 4 mg PO TIDP PRN Nausea #10 tabs 01/13/22 tablet ibuprofen 600 mg tablet See Rx Instructions .Route 02/18/22 .COMPLEX Pain #90 tabs tizanidine 4 mg tablet See Rx Instructions .Route 02/18/22 .COMPLEX Pain #90 tabs trazodone 150 mg tablet 150 mg PO HS PRN Insomnia #90 tabs 03/02/22 benzonatate 100 mg capsule 100 mg PO TIDP PRN Cough #30 caps 04/23/22 ondansetron 4 mg disintegrating 4 mg PO Q8H PRN Nausea #20 tabs 04/23/22 tablet Allergies Allergy/AdvReac Type Severity Reaction Status Date / Time lisinopril AdvReac Intermediate cough Verified 04/23/22 14:29 Worker's Comp Is this a Worker's Comp case?: No PFSH PFSH Medical History Anxiety Hypertension Social History Smoking Status: Never smoker second hand exposure: Yes alcohol intake: never substance use type: marijuana current occupational status: other household members: spouse housing: house caffeine: No ROS Obtained: Yes All systems reviewed & no additional complaints except as documented Constit
[2022-04-23 15:14] VITALS: BP 145/99; PULSE 70; RESP 18; TEMP 36.8
== END 2022-04-23 15:15 | disposition home or self-care (01) ==
LOC: ER 13:01 → UTC 13:01
PROVIDERS: Emergency Provider Nurse Practitioner Family; PCP Nurse Practitioner Family
DX: U07.1 COVID-19 (principal); J02.9 Acute pharyngitis, unspecified; B34.9 Viral infection, unspecified; M79.10 Myalgia, unspecified site; R11.0 Nausea; R51.9 Headache, unspecified; R53.82 Chronic fatigue, unspecified; I10 Essential (primary) hypertension; G47.00 Insomnia, unspecified; F41.9 Anxiety disorder, unspecified; Z79.899 Other long term (current) drug therapy; Z88.8 Allergy status to other drugs, medicaments and biological substances
CPT/HCPCS: 99213; C9803; G0463; U0003; U0005

== ENCOUNTER 2023-12-12 11:44 | Emergency (ER) | payer SELFPAY ==
[2023-12-12 12:00] VITALS: PULSE 65; RESP 18; TEMP 36.9; O2SAT 96; BMI 30.9
--- NOTE | 2023-12-12 12:19 | EXP.UTC ---
Discharge Plan Disposition Patient Disposition: Home, Self-Care Condition: Good Prescriptions Prescriptions: New methylprednisolone 4 mg Tablets,Dose Pack 4 mg PO DIRECTED 6 Days Qty: 21 0RF Rx Instructions: Take 1 pack as directed for 6 days No Action loratadine [Allergy Relief (loratadine)] 10 mg tablet 10 mg PO DAILY Qty: 30 2RF tadalafil 10 mg tablet 10 mg PO DAILY PRN (Reason: erectile dysfunction) 30 Days Qty: 20 3RF Rx Instructions: administer approximately 30min before sexual activity; do not use more than 1 dose per 24hrs tizanidine 4 mg tablet See Rx Instructions .ROUTE .COMPLEX Qty: 90 3RF Dose Instruction: TAKE ONE TABLET BY MOUTH EVERY 8 HOURS NEEDED FOR MUSCLE SPASTICITY *MAY CAUSE DROWSINESS* Rx Instructions: TAKE ONE TABLET BY MOUTH EVERY 8 HOURS NEEDED FOR MUSCLE SPASTICITY *MAY CAUSE DROWSINESS* carvedilol 12.5 mg tablet See Rx Instructions .ROUTE .COMPLEX Qty: 180 1RF Dose Instruction: TAKE 1 TABLET BY MOUTH TWICE DAILY FOR HYPERTENSION; MUST ADMINISTER WITH A MEAL/FOOD Rx Instructions: TAKE 1 TABLET BY MOUTH TWICE DAILY FOR HYPERTENSION; MUST ADMINISTER WITH A MEAL/FOOD ibuprofen 600 mg tablet See Rx Instructions .ROUTE .COMPLEX Qty: 90 0RF Dose Instruction: TAKE 1 TABLET BY MOUTH EVERY 8 HOURS WITH FOOD NEEDED FOR FEVER OR PAIN Rx Instructions: TAKE 1 TABLET BY MOUTH EVERY 8 HOURS WITH FOOD NEEDED FOR FEVER OR PAIN trazodone 150 mg tablet See Rx Instructions .ROUTE .COMPLEX Qty: 30 0RF Dose Instruction: TAKE 1 TABLET BY MOUTH AT BEDTIME NEEDED FOR INSOMNIA Rx Instructions: TAKE 1 TABLET BY MOUTH AT BEDTIME NEEDED FOR INSOMNIA Referrals Follow up/Referrals: Les Nova APRN [Primary Care Provider] - See instructions Activity Restrictions/Add. Instructions Additional Instructions/Restrictions: Rest the extremity, Wear the deann wrap for compression, Elevate the extremity as tolerated while you are resting. Take the medication as directed. Follow up with Dr. Boyce (orthopedics) if you continue to have symptoms. I put in a referral but you need to call his office and schedule an appointment. His office phone number will be on this paperwork. Follow up with your regular doctor. GO TO THE ER FOR ANY WORSENING SYMPTOMS Clinical Impressions Clinical Impression: Right knee pain Stand Alone Forms Stand Alone Forms: Work/School Release Discharge ED Provider: Elbert Cage [facility] [place] HPI General Stated complaint: Pain in R knee Time Seen by Provider: 12/12/23 12:19 History of Present Illness Provider Complaint: He states that for the past 2 weeks he has had right knee pain. He denies any injury or trauma. He states that it started hurting him after he worked really hard one day. Bending down and pushing himself back up with it makes it worse. He denies any other complaints. Related Data Previous Rx's Medication Instructions Recorded loratadine 10 mg tablet (Allergy 10 mg PO DAILY #30 tabs 06/07/23 Relief (loratadine)) tadalafil 10 mg tablet 10 mg PO DAILY PRN erectile 06/08/23 dysfunction 30 days #20 tabs tizanidine 4 mg tablet See Rx Instructions .Route 07/07/23 .COMPLEX #90 ea carvedilol 12.5 mg tablet See Rx Instructions .Route 08/25/23 .COMPLEX #180 tabs ibuprofen 600 mg tablet See Rx Instructions .Route 10/07/23 .COMPLEX #90 tabs trazodone 150 mg tablet See Rx Instructions .Route 10/20/23 .COMPLEX #30 tabs methylprednisolone 4 mg tablets in 4 mg PO DIRECTED 6 days #21 tabs 12/12/23 a dose pack Allergies Allergy/AdvReac Type Severity Reaction Status Date / Time lisinopril AdvReac Intermediate cough Verified 12/12/23 12:33 [facility] Disclaimer: The information contained in this section may have been updated after the patient was seen, as this information can be updated by other users. Medical History Anxiety Hypertension Social History Smoking Status: Never smoker second hand exposure: Yes alcohol intake: never substance use type: marijuana current occupational status: other Travel in the last 8 weeks: None household members: spouse housing: house caffeine: No ROS Obtained: Yes All systems reviewed & no additional complaints except as documented Constitutional Constitutional: Denies chills and Denies fever(s) Eyes Eyes: Denies eye discharge ENT Ears, Nose, Mouth, and Throat: Denies dizziness, Denies otalgia and Denies sore throat Cardiovascular Cardiovascular: Denies chest pain Respiratory Respiratory: Denies shortness of breath, Denies chest congestion, Denies cough, Denies stridor and Denies wheezing Gastrointestinal Gastrointestingal: Denies nausea or vomiting Musculoskeletal Musculoskeletal: Reports as per HPI Integumentary/Breasts Skin/Breast: Denies rash Neurologic Neurologic: Denies dizziness and Denies paresthesias Allergic/Immunologic Allergic/Immunologic: Denies wheezing Physical Exam General General appearance: alert and in no apparent distress Head Head exam: atraumatic, normocephalic and normal inspection Eye Eye exam: Present normal appearance, PERRL and EOMI ENT ENT exam: Present normal exam, normal oropharynx, mucous membranes moist, TM's normal bilaterally and normal external ear exam Neck Neck exam: Present normal inspection, full ROM and trachea midline; Absent meningismus or lymphadenopathy Chest Chest inspection: Present normal inspection and symmetric chest wall rise; Absent tenderness Respiratory Respiratory exam: Present normal lung sounds bilaterally; Absent respiratory distress Cardiovascular Cardiovascular exam: Present regular rate and normal rhythm; Absent JVD Abdominal Exam Abdominal exam: Present soft and normal bowel sounds; Absent distention, tenderness or guarding Extremities Exam Extremities exam: Present normal capillary refill; Absent calf tenderness Expanded Lower Extremity Exam Right: Hip/Pelvis exam: Present normal inspection and full ROM; Absent tenderness Upper leg exam: Present normal inspection and full ROM; Absent tenderness Knee exam: Present full ROM, tenderness and knee extension intact; Absent swelling, abrasion, laceration, ecchymosis, deformity, crepitus, dislocation, erythema, effusion, posterior draw sign, pain with valgus, laxity with valgus, pain with varus or laxity with varus Lower leg exam: Present normal inspection and full ROM; Absent tenderness Ankle exam: Present normal inspection and full ROM; Absent tenderness Foot/toe exam: Present normal inspection and full ROM; Absent tenderness Neurovascular/Tendon exam: Present normal capillary refill and normal 2-point discrimination; Absent pulse deficit, motor deficit, sensory deficit, tendon deficit, extremity cold to touch or pallor Gait: observed and normal Back Exam Back exam: Present normal inspection; Absent tenderness Neurological Exam Neurological exam: Present alert and oriented X3 Psychiatric Psychiatric exam: Present normal affect and normal mood Skin Skin exam: Present warm, dry, intact and normal color Lymphatic Lymphatic Findings: no adenopathy Medical Decision Making Medical Records Medical records reviewed: No I reviewed the patient's medical records. Ravinder Inquiry Pt receiving controlled substance: No
--- NOTE | 2023-12-12 12:28 | XR_ITS ---
FINAL REPORT CLINICAL HISTORY: pain FINDINGS: AP, lateral and oblique views of the right knee were obtained. There is no prior exam for comparison. There is no acute osseous abnormality of the right knee. The joint space is preserved. The soft tissues are normal. There is no joint effusion. IMPRESSION: No acute osseous abnormality of the right knee. Reviewed, Interpreted and Dictated by Sidney Sousa MD Transcribed by Shantell Leal Authenticated and [facility]
[2023-12-12 13:10] VITALS: BP 0/0; PULSE 65; RESP 18; TEMP 36.9; O2SAT 96
== END 2023-12-12 13:10 | disposition home or self-care (01) ==
PROVIDERS: Emergency Provider Nurse Practitioner Family; PCP Nurse Practitioner Family
DX: M25.561 Pain in right knee (principal); I10 Essential (primary) hypertension
CPT/HCPCS: 73562; 99212; 99214; G0463